=== PATIENT | female | born 2000 | race African-American/Black ===

== ENCOUNTER 2023-05-04 18:19 | Emergency (ER) | payer MEDICAID ==
[~2023-05-04] VITALS: Ht 160 cm; Wt 87.0 kg
[2023-05-04 18:25] VITALS: BP 117/66; PULSE 85; RESP 16; TEMP 98.9; O2SAT 100
[2023-05-04] MEDS ORDERED: P50 MT (20:32)
[2023-05-04] MEDS ORDERED: IBUP-1525 MT (20:32)
[2023-05-04] MEDS ORDERED: AZIT250T12 MT (20:32)
[2023-05-04] MEDS ORDERED: FLUT9.9S BOTHNSTRLS (20:32)
== END 2023-05-04 20:42 | disposition home or self-care (01) ==
LOC: ER 18:19
DX: R05.9 Cough, unspecified (principal); R09.81 Nasal congestion; F41.9 Anxiety disorder, unspecified; Z79.899 Other long term (current) drug therapy
CPT/HCPCS: 99281

== ENCOUNTER 2023-06-26 11:58 | Emergency (ER) | payer MEDICAID ==
[~2023-06-26] VITALS: Ht 160 cm; Wt 92.3 kg
[~2023-06-26 11:58] MED LIST: AZIT250T12 MT; FLUT9.9S BOTHNSTRLS; IBUP-1525 MT; P50 MT
[2023-06-26 12:09] VITALS: O2SAT 97
[2023-06-26] MEDS ORDERED: BENZ200C52 MT (12:23)
[2023-06-26 14:01] VITALS: BP 109/60; PULSE 88; RESP 16; TEMP 98.2
== END 2023-06-26 14:02 | disposition home or self-care (01) ==
LOC: ER 12:57
DX: J00 Acute nasopharyngitis [common cold] (principal)
CPT/HCPCS: 71045; 99283

== ENCOUNTER 2024-04-18 11:13 | Emergency (ER) | payer MEDICAID ==
[~2024-04-18] VITALS: Ht 167.6 cm; Wt 85.0 kg
[~2024-04-18 11:13] MED LIST changes: +BENZ200C52 MT
[2024-04-18 11:29] VITALS: O2SAT 99
[2024-04-18] MEDS: KETOROLAC 15MG/ML VIAL IM ONE (12:00)
[2024-04-18] MEDS ORDERED: CLIN300C3 MT (12:23)
[2024-04-18 13:37] VITALS: BP 119/84; PULSE 75; RESP 18; TEMP 36.89184; O2SAT 100
== END 2024-04-18 13:44 | disposition home or self-care (01) ==
LOC: ER 11:15
DX: K02.9 Dental caries, unspecified (principal); F41.9 Anxiety disorder, unspecified; Z79.899 Other long term (current) drug therapy
CPT/HCPCS: 99283; 81025; 96372; J1885

== ENCOUNTER 2024-04-20 16:13 | Emergency (ER) | payer MEDICAID ==
[~2024-04-20] VITALS: Ht 160 cm; Wt 81.6 kg
[~2024-04-20 16:13] MED LIST changes: +CLIN300C3 MT
[2024-04-20 16:48] VITALS: O2SAT 99
[2024-04-20] MEDS ORDERED: AMOX-494 MT (21:10)
[2024-04-20] MEDS ORDERED: IBUP-2029 MT (21:10)
[2024-04-20 21:17] VITALS: BP 100/58; PULSE 68; RESP 18; TEMP 36.89184; O2SAT 99
== END 2024-04-20 21:53 | disposition home or self-care (01) ==
LOC: ER 16:13
DX: K08.89 Other specified disorders of teeth and supporting structures (principal); F41.9 Anxiety disorder, unspecified; Z79.899 Other long term (current) drug therapy
CPT/HCPCS: 99283